=== PATIENT | female | born 1965 | race Caucasian/White ===

== ENCOUNTER 2021-06-25 02:11 | Emergency (ER) | payer OTHER, MEDICAID ==
[~2021-06-25 02:11] MED LIST: Naproxen 500 MG Tab ONE
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
[2021-06-25] MEDS ORDERED: Ketorolac 30 MG/ML SDV IM ONE (02:44)
[2021-06-25] MEDS ORDERED: Lactated Ringers 1,000 ML IV SCH (03:15)
[2021-06-25] MEDS ORDERED: Ketorolac 30 MG/ML SDV ONE (03:50)
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
--- NOTE | 2021-06-25 10:33 | CR ---
Date of Service: 06/25/21 Clinical Data: trauma LEFT FOOT: No priors. There is soft tissue swelling over the dorsum of the foot. No acute fracture or dislocation. No lytic or blastic bone lesions. [id number] MTDD
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
== END 2021-06-25 04:45 | disposition home or self-care (01) ==
LOC: LB.ED 02:11
DX: S82.65XA Nondisplaced fracture of lateral malleolus of left fibula, initial encounter for closed fracture (principal); S92.415A Nondisplaced fracture of proximal phalanx of left great toe, initial encounter for closed fracture; V49.10XA Passenger injured in collision with unspecified motor vehicles in nontraffic accident, initial encounter; Y92.410 Unspecified street and highway as the place of occurrence of the external cause
CPT/HCPCS: 29515; 36415; 73560-LT; 73590-LT; 73620-LT; 80048; 80307; 85025; 96372; 99284-25; A0425; A0429; A9270-GY; J1885